=== PATIENT | male | born 1970 | race Caucasian/White ===

== ENCOUNTER 2019-04-15 14:32 | Emergency (ER) | payer OTHER, SELFPAY ==
[2019-04-15 14:33] VITALS: BP 169/89; PULSE 71; RESP 16; TEMP 36.2; O2SAT 98; BMI 33.0
--- NOTE | 2019-04-15 15:20 | CT_ITS ---
STUDY: CT ABDOMEN AND PELVIS WITHOUT CONTRAST REASON FOR EXAM: Male, 48 years old. Right flank pain radiating into groin, hx stones. No prior abdomen surgery. RADIATION DOSAGE (If Supplied By Facility): CTDIvol = ( 14.34 ) mGy, DLP = ( 760.62 ) mGycm TECHNIQUE: Transaxial images were obtained from the dome of the diaphragm to the symphysis pubis without oral contrast, and without intravenous contrast. Sagittal and coronal images were reconstructed. Individualized dose optimization techniques were used for this CT. COMPARISON: None. FINDINGS: Mild interstitial thickening in both lower lobes.. The visualized portions of the heart are within normal limits. The liver is mildly fatty infiltrated without mass or bile duct dilatation. Normal gallbladder and extrahepatic biliary system. Normal spleen. Normal pancreas. Normal bilateral adrenal glands. Normal right kidney. Normal left kidney. Normal visualized stomach. Normal small intestine. Normal colon. The appendix is visualized and appears normal. Minor atherosclerotic changes of the aorta without evidence for aneurysm Normal inferior vena cava. Normal retroperitoneum. Normal urinary bladder. Normal abdominal wall. Lumbar spine demonstrates mild spondylosis CT/Abdomen/Pelvis without Cont IMPRESSION: Mild nonspecific fatty infiltration of liver.. No acute abnormalities within the abdomen and pelvis No evidence for hydronephrosis or ureteral calculus Electronically Signed: Edin Driver MD at 16:27 EST , Service support ,
--- NOTE | 2019-04-15 15:22 | ED.VISSUMM ---
- ER Visit Summary Date of Service: 04/15/19 Chief Complaint: Right flank pain History of Present Illness: The patient is a 48 M presenting with right flank pain. He states he had mild pain last night. He states around 1230 this afternoon it became severe. He has history of previous kidney stones and states this feels similar. He denies fever, chills. Denies nausea or vomiting. Denies dysuria, hematuria, frequency. Denies numbness or weakness. Denies bowel or bladder incontinence. Denies other complaints. Physical Examination: Vitals are stable. Patient is afebrile. Alert no acute distress. HEENT exam is unremarkable. Neck is supple. Lungs are clear and equal bilaterally. Heart is regular rate and rhythm. Abdomen is soft nontender nondistended. No guarding or rebound Back: Mild right CVA tenderness Extremities are unremarkable. Skin is warm and dry. Remainder of exam is unremarkable. Emergency Department Course and Treatment: Patient was given morphine, Zofran, Toradol. Urinalysis shows occult blood, 0 white cells, 0-[address] abdomen/pelvis shows mild nonspecific fatty infiltration of liver. No acute abnormalities within the abdomen and pelvis. No evidence for hydronephrosis or ureteral calculus. Discussed possibility of passed kidney stone versus back strain with the patient. He states he did lift something heavy before this started. The pain that feels similar to his previous kidney stones has resolved. He is given prescriptions for Naprosyn and Flexeril. He will follow-up with his primary care physician. Advised return to the ED for worsening complaints. Disposition: Discharge home Impression: Right flank pain This note was generated with [employer] dictation software. It may contain incorrect words, spelling, and punctuation that were not noted in review of the chart prior to signing ED Disposition - Plan for ED Patient: Instructions: FLANK PAIN, Uncertain Cause Prescriptions: cycloBENZAPRine HCl [Flexeril] 10 mg PO TID PRN #20 tab PRN Reason: Muscle Spasm Prescription Printed Naproxen [Naprosyn] 500 mg PO BID PRN #20 tab Prescription Printed Referrals: Dirk Chan MD [Primary Care Provider] -
[2019-04-15] MEDS: Ketorolac 30 MG/ML Syringe IV (15:49)
[2019-04-15] MEDS: Ondansetron 4 MG/2 ML Vial IV (15:50)
[2019-04-15 15:55] LABS: Bacteria 0 SEEN /hpf (None Seen); Squamous Epithelial Cells - UA 0 SEEN /hpf (0-5); White Blood Cells 0 SEEN /hpf (0-5)
--- NOTE | 2019-04-15 15:57 | ED.RN ---
PT DECLINED MORPHINE AT THIS TIME.
[2019-04-15 16:12] LABS: Color, Urine Yellow (Yellow); Glucose, Dipstick 250 mg/dl (Normal); Ketone-Dipstick Negative (Negative); Leukocyte Esterase-Dipstick Negative /ul (Negative); Nitrite-Dipstick Negative (Negative); Occult Blood-Urine 25 /ul (Negative); Protein-Dipstick 30 mg/dl (Negative); Urine Bilirubin Dipstick Negative (Negative); Urine Clarity Clear (Clear); Urine Urobilinogen Normal (Normal)
[2019-04-15 16:13] LABS: Mucous, Urine 4+ /hpf (<or=2+); Red Blood Cells-Urine 0-5 SEEN /hpf (0-5)
[2019-04-15 16:14] LABS: Calcium Oxalate Crystals Ur 1+ /hpf (<or=2+); Hyaline Cast 0-5 SEEN /lpf (0-5)
--- NOTE | 2019-04-15 16:34 | ED.DEP ---
ED Disposition - Plan for ED Patient: Instructions: FLANK PAIN, Uncertain Cause Prescriptions: cycloBENZAPRine HCl [Flexeril] 10 mg PO TID PRN #20 tablet PRN Reason: Muscle Spasm Naproxen [Naprosyn] 500 mg PO BID PRN #20 tablet Referrals: Dirk Chan MD [Primary Care Provider] -
[2019-04-15 16:50] VITALS: BP 153/94; PULSE 74; RESP 18
== END 2019-04-15 16:51 | disposition home or self-care (01) ==
LOC: ED 15:48
PROVIDERS: Emergency Provider Emergency Medicine; Family Provider Family Medicine; PCP Family Medicine
DX: R10.9 Unspecified abdominal pain (principal); Z87.442 Personal history of urinary calculi
CPT/HCPCS: 74176; 81001; 96374; 96375; 99283; J7030; J2405

== ENCOUNTER 2019-04-16 08:51 | Emergency (ER) | payer OTHER, SELFPAY ==
[2019-04-15 14:33] VITALS: BMI 33.0
[2019-04-16 08:51] VITALS: BP 179/87; PULSE 69; RESP 17; TEMP 36.7; BMI 32.4
--- NOTE | 2019-04-16 09:16 | ED.RN ---
APPROACHES NURSES STATION STATING THAT HE IS IN PAIN, DR. ENGLAND MADE AWARE.
--- NOTE | 2019-04-16 09:23 | CT_ITS ---
STUDY: CT ABDOMEN AND PELVIS WITH CONTRAST REASON FOR EXAM: Male, 48 years old. RT FLANK PAIN RADIATING TO RT GROIN, WAS SEEN IN ER YESTERDAY FOR SAME SYMPTOMS, SHARP, STABBING PAINS TO GROIN, HX-KS, NO PREV SURG RADIATION DOSAGE (If Supplied By Facility): CTDIvol = ( 17.55 ) mGy, DLP = ( 2202.34 ) mGycm TECHNIQUE: Transaxial images were obtained from the dome of the diaphragm to the symphysis pubis with oral contrast. 100ML ISOVUE 300 was administered. Sagittal and coronal images were reconstructed. Individualized dose optimization techniques were used for this CT. COMPARISON: None. FINDINGS: The visualized lung bases are unremarkable. The visualized portions of the heart are within normal limits. There is decreased attenuation of the liver consistent with steatosis. Normal gallbladder and extrahepatic biliary system. Normal spleen. Normal pancreas. Normal bilateral adrenal glands. Normal right kidney. Normal left kidney. Normal visualized stomach. Normal small intestine. Normal colon. The appendix is visualized and appears normal. Normal abdominal aorta. Normal inferior vena cava. Normal retroperitoneum. Normal urinary bladder. Normal visualized prostate gland. Normal abdominal wall. Normal osseous structures. CT/Abdomen/Pelvis WITH Contrast IMPRESSION: Mild fatty steatosis of the liver. No evidence of urolithiasis or renal obstruction. Unremarkable appendix Electronically Signed: Suleiman Bustos DO at 11:49 EST Tel , Service support ,
--- NOTE | 2019-04-16 09:25 | ED.DCSUM_ITS ---
- ER Visit Summary Date of Service: 04/16/19 Chief Complaint: Right-sided abdominal pain History of Present Illness: The patient is a 48 M who presents with breakthrough abdominal pain that became worse today. Patient was seen here yesterday for the same complaint. Patient had a CT scan done yesterday which did not show any evidence of kidney stones. Patient states the pain is over the right flank and right lower abdomen. Patient states nothing makes the pain better. Patient states the pain is worse when he lays down and after urination. Patient describes the pain as sharp. Patient admits to an episode of nausea and vomiting today. Patient denies any hematemesis or coffee-ground emesis. Pat ient denies any dysuria or hematuria. Patient denies any diarrhea, melena, or hematochezia. Physical Examination: Vital signs are stable. Patient is afebrile. Patient is moving about the room trying to find a position of comfort. Oral mucosa is pink and moist. Neck is supple. Trachea is midline. There is no JVD. Heart was regular rate and rhythm. Lungs are clear and equal bilaterally. Abdomen is soft. Bowel sounds are normal. There is some mild right lower quadrant tenderness. There is also some mild right CVA tenderness. There is no rebound or guarding noted. Cranial nerves II through XII are intact. There are no focal motor or sensory deficits noted. Test Results: CBC and comprehensive metabolic profile within normal limits. Li pase was normal. Urinalysis was obtained and does not show any evidence of urinary tract infection. CT scan of the abdomen pelvis with oral and IV contrast was obtained today. There is no acute intra-abdominal process. This was interpreted by the radiologist. Emergency Department Course and Treatment: Patient was given morphine and Zofran here. Patient had minimal relief with this. Patient was given injections of Dilaudid 0.5 mg x 2 doses. Patient had some improvement after this. Patient was still complaining of pain that is worse when he sat and layed down. Patient was given a repeat injection of morphine. Patient was advised of his findings. Patient was instructed to follow-up with his primary care physician in 2 to 3 days. Patient was given prescription for Percocet and Pyridium. Patient understood and was agreeable with the plan. All questions were answered. Disposition: Discharge home Impression: 1. Right-sided abdominal pain This note was generated with Dragon dictation software. It may contain incorrect words, spelling, and punctuation that were not noted in review of the chart prior to signing ED Disposition - Plan for ED Patient: Disposition: Home or Assisted Living Diagnosis: Abdominal pain in male Instructions: ABDOMINAL PAIN, Unkown Cause, (Male) Prescriptions: Oxycodone HCl/Acetaminophen [Percocet 5/325] 1 tab PO Q6H PRN PRN 3 Days #12 tab PRN Reason: Pain Prescription Printed Phenazopyridine HCl [Pyridium] 200 mg PO TID #9 tab Prescription Printed Referrals: Dirk Chan MD [Primary Care Provider] - 3-5 Days
[2019-04-16] MEDS: Morphine 4 MG/ML Syringe IV ×2 (09:30→14:04)
[2019-04-16] MEDS: Ondansetron 4 MG/2 ML Vial IV (09:30)
[2019-04-16 09:37] LABS: Absolute Lymphocyte Count 3.16 X10^3/uL (0.83-4.51); Basophil# 0.05 X10^3/uL; Basophil% 0.5 % (0-1); Eosinophil# 0.21 X10^3/uL; Eosinophils% 2.2 % (0-5); Hematocrit 47.9 % (40-54); Hemoglobin 16.1 g/dL (13.0-16.5); Lymphocyte # 3.16 X10^3/ul (4.0); Lymphocyte % 33.3 % (19-41); Mean Corp Hgb Conc 33.6 g/dL (32-36); Mean Corpuscular Volume 86.3 fL (80-94); Monocyte# 0.96 X10^3/uL; Monocyte% 10.1 % (0-10); NRBC Flagged by Analyzer 0 % (0-5); Neutrophil # 5.04 X10^3/uL (2.7-7.7); Neutrophil % 53.1 % (47-70); Platelet Count 293 K/mm3 (150-450); RBC Distribution Width CV 12.7 % (11.6-14.6); RBC Distribution Width SD 39.9 fl (35.1-43.9); Red Blood Count 5.55 M/mm3 (4.6-6.2); White Blood Count 9.5 K/mm3 (4.4-11.0)
[2019-04-16 09:51] LABS: ALB/GLOB Ratio 1.2 RATIO (0.9-2.4); AST(SGOT) 31 U/L (15-37); Alanine Aminotransfer ALT/SGPT 57 U/L (16-61); Albumin, Serum 4.5 g/dL (3.2-5.0); Alkaline Phosphatase 40 U/L (45-117); Anion Gap 6 (5-15); BUN 17 mg/dL (7-18); Chloride 109 mmol/L (98-107); Creatinine, Serum 1.21 mg/dL (0.70-1.30); EST Glomerular Filtration Rate 68 mL/min (>60); Est Glom Filt Rate - Afr Amer 82 mL/min (>60); Estimated Creatinine Clearance 81.06 ml/min; Globulin 3.9 g/dL (2.2-4.2); Glucose 142 mg/dL (74-106); Lipase 89 U/L (73-393); Potassium 4.3 mmol/L (3.5-5.1); Protein, Total 8.4 g/dL (6.4-8.2); Sodium Level 141 mmol/L (136-145)
--- NOTE | 2019-04-16 09:53 | ED.RN ---
PT COMPLAINS OF CONTINUED PAIN, DR. ENGLAND MADE AWARE.
[2019-04-16] MEDS: HYDROmorphone 0.5 MG/0.5 ML SYRINGE IV ×2 (10:13→11:31)
[2019-04-16 12:39] LABS: Bacteria 0 SEEN /hpf (None Seen); Mucous, Urine 0 SEEN /hpf (<or=2+)
[2019-04-16 13:00] LABS: Color, Urine Yellow (Yellow); Glucose, Dipstick Normal (Normal); Ketone-Dipstick Negative (Negative); Leukocyte Esterase-Dipstick Negative /ul (Negative); Nitrite-Dipstick Negative (Negative); Occult Blood-Urine 25 /ul (Negative); Protein-Dipstick 30 mg/dl (Negative); Specific Gravity, Urine 1.015 (1.002-1.030); Urine Bilirubin Dipstick Negative (Negative); Urine Clarity Clear (Clear); Urine Urobilinogen Normal (Normal)
[2019-04-16 13:08] LABS: Red Blood Cells-Urine 0-5 SEEN /hpf (0-5); Squamous Epithelial Cells - UA 0-5 SEEN /hpf (0-5); White Blood Cells 0-5 SEEN /hpf (0-5)
[2019-04-16 14:05] VITALS: BP 116/88; PULSE 75; RESP 16; O2SAT 96
== END 2019-04-16 14:10 | disposition home or self-care (01) ==
PROVIDERS: Emergency Provider Emergency Medicine; Family Provider Family Medicine; PCP Family Medicine
DX: R10.31 Right lower quadrant pain (principal); R11.2 Nausea with vomiting, unspecified
CPT/HCPCS: 74177; 80053; 81001; 83690; 85025; 96374; 96375; 96376; 99283; Q9967; A4216; J2405

== ENCOUNTER 2024-06-10 07:18 | Day surgery (SDC) | payer OTHER, SELFPAY ==
[2024-06-10] VITALS (8 sets, daily range): BP systolic 116–155; BP diastolic 83–95; PULSE 55–77; RESP 14–16; TEMP 36.3–37.3; O2SAT 93–99; BMI 33.9
--- NOTE | 2024-06-10 07:35 | PRE.ANES_ITS ---
ASA Classification* ASA Classification ASA Classification: 2 Assessment & Plan Anesthesia* Anesthesia Assessment Anesthesia Assessment: Discussed sedation and/or anesthesia options, risks, benefits, and alternatives with patient/parents/legal guardian/POA. Questions invited. The patient/parents/legal guardian/POA seems to understand and agrees to proceed with anesthesia plan. Reviewed the physical assessment, medical history, allergy history and patient home medications list prior to surgery/procedure/anesthetic and documented any changes. Performed airway and anesthesia risk assessments. Anesthesia Type Anesthesia Type: MAC Anesthesia Focused Assessment* Airway Assessment Mouth opens: >3 cm Mallampati Score: II Focused Labs Anesthesia Preop lab: CBC WBC 9.5 K/mm3 (4.4-11.0) 04/16/19 08:59 04/16/19 RBC 5.55 M/mm3 (4.6-6.2) 04/16/19 08:59 04/16/19 Hgb 16.1 g/dL (13.0-16.5) 04/16/19 08:59 04/16/19 Hct 47.9 % (40-54) 04/16/19 08:59 04/16/19 Plt Count 293 K/mm3 (150-450) 04/16/19 08:59 04/16/19 CHEMISTRY Potassium 4.3 mmol/L (3.5-5.1) 04/16/19 08:59 04/16/19 Sodium 141 mmol/L (136-145) 04/16/19 08:59 04/16/19 BUN 17 mg/dL (7-18) 04/16/19 08:59 04/16/19 Creatinine 1.21 mg/dL (0.70-1.30) 04/16/19 08:59 04/16/19 Glucose 142 mg/dL (74-106) H 04/16/19 08:59 04/16/19 COAG Pre-Assessment Diagnosis/Proposed Procedure Planned Operative Procedure(s): CSCOPE Anesthesia History Anesthesia History - emg technician: Anesthesia History - emg technician Hx Hospitalization No 06/08/24 09:40 Any Problems With Anesthesia No 06/08/24 09:40 Cholinesterase deficiency No 06/08/24 09:40 You/Your Family Experience No 06/08/24 09:40 fever (hyperthermia) with Relationship Recent Exposure to Contagious Disease Does patient have nerve No 06/08/24 09:40 stimulator Patient instructed to have device shut off --Does patient have Pacemaker or ICD? When Was Last Pacemaker Check QUESTION #4 FULL TEXT: You/Your Family Experience fever (hyperthermia) with Anesthesia Last Oral Intake Last Oral intake: Last Oral Intake NPO since Meds taken in AM with sips of water? Meds patient instructed to take am of surgery PONV PONV - emg technician: PONV - emg technician Female No 06/08/24 09:40 HX of Motion Sickness No 06/08/24 09:40 HX of N/V After Surgery No 06/08/24 09:40 Non-Smoker Yes 06/08/24 09:40 Duration of Surgery greater No 06/08/24 09:40 than 60 minutes Number of Risk Factors 1 06/08/24 09:40 PONV Score Low Risk 06/08/24 09:40 Height & Weight Height & Weight: Anesthesia: Height & Weight Height 6 ft 1 in 04/23/21 08:19 Respiratory Assessment Respiratory Assessment - emg technician: Respiratory Tract Infection Hx - emg technician Hx Respiratory Tract Infection No 06/08/24 09:40 STOP Sleep Apnea STOP Sleep Apnea - emg technician: STOP Sleep Apnea - emg technician Hx Hypertension Yes: NO MEDS 06/08/24 09:40 Hx Sleep Apnea No 06/08/24 09:40 CPAP BIPAP Do you snore loudly (louder No 06/08/24 09:40 than talking or can be heard Do you often feel tired/ No 06/08/24 09:40 fatigued/ sleepy during daytime? Has anyone observed you stop No 06/08/24 09:40 breathing during sleep? STOP Results Negative 06/08/24 09:40 QUESTION #5 FULL TEXT : Do you snore loudly (louder than talking or can be heard through closed doors)? 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 Specify any problems Hx of Preganancy in last 3 N/A 06/08/24 09:40 Months Nurse Filling Out Transfusion NBUCHER 06/08/24 09:40 & Questions: Date: 06/08/24 02 09:40 Time: 09:40 06/08/24 09:40 Patient unable to answer at this time (ie. confused, unrespo /Reproduction History /Reproductive History - emg technician: /Reproductive Hx- emg technician Hx Now No 06/08/24 09:40 Gestational Age (in weeks): EDC: Hx Hx Para Hx Section SAB No 06/08/24 09:40 [facility] Medical History Wears glasses Non-smoker Asthma HTN (hypertension) Home Medications ?Medication ?Instructions ?Recorded ?Last Taken ?Type albuterol sulfate 90 mcg/actuation 2 puff inhalation Q 6H PRN 05/02/24 Unknown History aerosol inhaler shortness of breath or wheez ing Allergy/AdvReac Type Severity Reaction Status Date / Time No Known Allergies Allergy Verified 06/10/24 07:33 Surgical History No history of previous surgery Social History household members: spouse current occupational status: employed current occupation: [employer] Smoking Status: Never smoker alcohol intake: current alcohol intake frequency: a few times a week substance use type: does not use Review of Systems (Anesthesia) ROS Narrative System reviewed and no additional complaints, except as documented.
--- NOTE | 2024-06-10 08:11 | HP.PCM_ITS ---
HPI - General General Date of Admission: 06/10/24 Date of Service: 06/10/24 Chief Complaint: Need for screening colonoscopy HPI Narrative GEOVANI MEJIAS, is a 53 M who presents to undergo screening colonoscopy. No prior colonoscopy. No family history of colon polyps or colon cancers. No recent GI symptoms or problems [facility] Medical History Wears glasses Non-smoker Asthma HTN (hypertension) Home Medications ?Medication ?Instructions ?Recorded ?Last Taken ?Type albuterol sulfate 90 mcg/actuation 2 puff inhalation Q 6H PRN 05/02/24 Unknown History aerosol inhaler shortness of breath or wheez ing Allergy/AdvReac Type Severity Reaction Status Date / Time No Known Allergies Allergy Verified 06/10/24 07:33 Surgical History No history of previous surgery Social History household members: spouse current occupational status: employed current occupation: [employer] Smoking Status: Never smoker alcohol intake: current alcohol intake frequency: a few times a week substance use type: does not use ROS Constitutional Constitutional: Reports systems reviewed and no addt'l complaints, except as documented Eyes Eyes: Reports systems reviewed and no addt'l complaints, except as documented ENT HEENT: Reports systems reviewed and no addt'l complaints, except as documented Cardiovascular Cardiovascular: Reports systems reviewed and no addt'l complaints, except as documented Respiratory/Chest Respiratory/Chest: Reports systems reviewed and no addt'l complaints, except as documented Gastrointestinal Gastrointestinal: Reports systems reviewed and no addt'l complaints, except as documented Vital Signs Vital Signs Vital Signs: 06/10/24 07:38 06/10/24 07:38 Temperature 97.4 F L Temperature Source Temporal Pulse Rate 77 Respiratory Rate 16 Respiratory Pattern Normal Blood Pressure 155/92 H Blood Pressure Mean 113 Blood Pressure Source Monitor Blood Pressure Position Semi-Fowlers Blood Pressure Location Left Arm Pulse Ox 99 Oxygen Delivery Method Room Air Weight Weight: 250 lb Body Mass Index (BMI) 33.9 Physical Exam Const alert, oriented x3 and no apparent distress Assessment & Plan Assessment/Plan (1) Encounter for screening for malignant neoplasm of colon: PLAN: Plan Patient is a 53-year-old male in need of a screening colonoscopy. He has had no prior colonoscopy. No family history of colon polyps or colon cancers. No recent symptoms. We discussed the details of the planned procedure and he wishes to proceed. This will begin momentarily Charges/Coding Visit Charges Inpatient E&M: 24485 Init Hosp L1
--- NOTE | 2024-06-10 08:15 | COLBX_PTH ---
PATIENT: GEOVANI MEJIAS LOC: EN U#:[id number] AGE/SX: 53/M ROOM: RE06/10/[address]: Dr. Luis Felipe Naqvi MD : 1970 BED: DIS: 06/10/2024 SPEC #: [id number] RECD: 06/10/24 10:34 STATUS: JOSE CHATMAN #: [id number] PUSHPA: 06/10/24 08:[address]: Luis Felipe Naqvi DEPT: SURGICAL PATHOLOGY RECD BY: Callie Rodriguez ENTERED: 06/10/24 12:42 SP TYPE: COLON BX MONSE DR: Dr. Estrella Hernández MD Tissues: Transverse colon Procedures: Surgery Specimen Level IV HEADER OPERATION: Colonoscopy, polypectomy PRE-OP DIAGNOSIS: Screening TISSUE SUBMITTED: Transverse colon polyp MICROSCOPIC DIAGNOSIS Transverse colon polyp, polypectomy: Tubular adenoma. 06/13/2024 MICROSCOPIC DESCRIPTION Slides are reviewed. GROSS DESCRIPTION Received in fixative is one container labeled with the patient's name and designated Transverse colon polyp. The specimen consists of multiple irregular fragments of light lubin soft tissue that in aggregate measure 0.9 x 0.4 x 0.1 cm. The specimen is totally submitted in one cassette. MS/mr 06/10/2024 TC:1 CPT:36057
--- NOTE | 2024-06-10 08:47 | OP.CCLET_ITS ---
06/10/2024 Estrella Hernández [place] [id number] [place] [address] Re : Colonoscopy procedure for Chandana Rondon Dear Dr. Hernández This procedure was performed on Monday, June 10, 2024. My impressions and recommendations are as follows: Impressions : - Preparation of the colon was fair. - One 3 mm polyp in the transverse colon, removed with a cold biopsy forceps. Resected and retrieved. - The examination was otherwise normal on direct and retroflexion views. Recommendations : - Discharge patient to home (ambulatory). - High fiber diet indefinitely. - Await pathology results. - Repeat colonoscopy in 5 years for surveillance. - Return to my office PRN. - Continue present medications. My findings are described in the full procedure note, which is enclosed. If I can be of further assistance, please feel free to contact me at . Sincerely, Luis Felipe Naqvi MD 06/10/2024 8:47:07 AM This report has been signed electronically.
--- NOTE | 2024-06-10 08:47 | OP.COLON_ITS ---
Patient Name: Chandana Rondon Procedure Date: 06/10/2024 8:10 AM Date of : 1970 Age: 53 Procedure: Colonoscopy Indications: Screening for colorectal malignant neoplasm Providers: Luis Felipe Naqvi MD Referring MD: Estrella Hernández Medicines: Monitored Anesthesia Care Patient Profile: Refer to note in patient chart for documentation of history and physical. Last Colonoscopy: none. The patient's first colonoscopy is today. Complications: No immediate complications. Estimated blood loss: Minimal. Procedure: Pre-Anesthesia Assessment: - Prior to the procedure, a History and Physical was performed, and patient medications and allergies were reviewed. The patient's tolerance of previous anesthesia was also reviewed. The risks and benefits of the procedure and the sedation options and risks were discussed with the patient. All questions were answered, and informed consent was obtained. Prior Anticoagulants: The patient has taken no anticoagulant or antiplatelet agents. ASA Grade Assessment: II - A patient with mild systemic disease. After reviewing the risks and benefits, the patient was deemed in satisfactory condition to undergo the procedure. After I obtained informed consent, the scope was passed under direct vision. Throughout the procedure, the patient's blood pressure, pulse, and oxygen saturations were monitored continuously. The adult colonoscope was introduced through the anus and advanced to the cecum, identified by appendiceal orifice and ileocecal valve. The ileocecal valve, appendiceal orifice, and rectum were photographed. The entire colon was well visualized. The colonoscopy was performed without difficulty. The patient tolerated the procedure well. The quality of the bowel preparation was fair. Moderate Sedation: See the other procedure note for documentation of moderate sedation with intraservice time. Scope In: 8:22:06 AM Scope Withdrawal Time 0 hours 10 minutes 6 seconds Scope Out: 8:40:43 AM Total Procedure Duration Time 0 hours 18 minutes 37 seconds Findings: The perianal and digital rectal examinations were normal. A 3 mm polyp was found in the transverse colon. The polyp was sessile. The polyp was removed with a cold biopsy forceps. Resection and retrieval were complete. Verification of patient identification for the specimen was done by the nurse using the patient's name, date and medical record number. Estimated blood loss was minimal. The exam was otherwise without abnormality on direct and retroflexion views. Impression: - Preparation of the colon was fair. - One 3 mm polyp in the transverse colon, removed with a cold biopsy forceps. Resected and retrieved. - The examination was otherwise normal on direct and retroflexion views. Recommendation: - Discharge patient to home (ambulatory). - High fiber diet indefinitely. - Await pathology results. - Repeat colonoscopy in 5 years for surveillance. - Return to my office PRN. - Continue present medications. Procedure Code(s): --- Professional --- 46385, Colonoscopy, flexible; with biopsy, single or multiple Diagnosis Code(s): --- Professional --- D12.3, Benign neoplasm of transverse colon (hepatic flexure or splenic flexure) Z12.11, Encounter for screening for malignant neoplasm of colon CPT copyright 2021 [employer]. All rights reserved. The codes documented in this report are preliminary and upon casing operator review may be revised to meet current compliance requirements. Luis Felipe Naqvi MD 06/10/2024 8:47:07 AM This report has been signed electronically. Number of Addenda: 0 Note Initiated On: 06/10/2024 8:10 AM
--- NOTE | 2024-06-10 08:52 | PCM.POST.ANE ---
Anesthesia: Postop Eval I Current Vital Signs Temperature: 97.3 F Pulse Rate: 55 Blood Pressure: 116/88 Respiratory Rate: 16 Pulse Ox: 93 Oxygen Delivery Method: Room Air Assessment Airway patent: Yes Spontaneous unlabored respirations: Yes Mental status: Awake and Calm nausea: No Vomiting: No Anesthesia Complication: No Fluid Hydration Crystalloid volume administer (ml): 50 Total IV fluid infused: 50 Progress Note Anesthesia document: Postop Eval 1 completed: Yes
--- NOTE | 2024-06-10 09:18 | PCM.POSTANE2 ---
Anesthesia Postop Eval I Sum Postop Eval Completion status Anesthesia document: Postop Eval 1 completed: Yes Anesthesia Postop Eval I Summary Anesthesia Postop Eval I Summary: Anesthesia Postop Eval I: Assessment Summary Airway patent Yes 06/10/24 08:57 [email or web address] Spontaneous unlabored Yes 06/10/24 08:57 [email or web address] respirations Mental status Awake,Calm 06/10/24 08:57 [email or web address] nausea No 06/10/24 08:57 [email or web address] Vomiting No 06/10/24 08:57 [email or web address] Anesthesia Postop Eval I: Fluid Summary Crystalloid volume administer 50 06/10/24 08:57 [email or web address] (ml) Colloids volume administered ( ml) Blood Product volume administered (ml) Total IV fluid infused 50 06/10/24 08:57 [email or web address] Anesthesia Postop Eval I: Summary Notes Anesthesia Complication No 06/10/24 08:57 [email or web address] Anesthesia Complication Comment: Post-operative progress note Anesthesia: Postop Eval II Evaluation Mental status: Awake Pain Level: 0 nausea: No Vomiting: No
== END 2024-06-10 09:25 | disposition home or self-care (01) ==
LOC: EN 07:19 → AC 07:20
PROVIDERS: PCP Family Medicine; Referring Provider Family Medicine; Visit Provider Surgery
PROC: 0DJD8ZZ Inspection of Lower Intestinal Tract, Via Natural or Artificial Opening Endoscopic (ICD-10-PCS; CPT 45378; principal; 2024-06-10 08:10)
DX: Z12.11 Encounter for screening for malignant neoplasm of colon (principal); D12.3 Benign neoplasm of transverse colon; I10 Essential (primary) hypertension; J45.909 Unspecified asthma, uncomplicated
CPT/HCPCS: 45380; 88305; A4216; J2405